=== PATIENT | male | born 1970 | race Caucasian/White ===

== ENCOUNTER 2020-03-15 11:33 | Emergency (ER) | payer BC, SELFPAY ==
[2020-03-15 11:37] VITALS: BP 187/120; PULSE 75; RESP 17; TEMP 37.1; O2SAT 97; O2SAT 98; BMI 34.0
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
[2020-03-15 13:21] VITALS: BP 199/124
[2020-03-15] MEDS: Lisinopril 10 MG Tablet PO (14:38)
[2020-03-15] MEDS: hydroCHLOROthiazide 12.5mg 12.5 MG PO (14:38)
[2020-03-15 14:39] VITALS: BP 169/101; PULSE 78; RESP 16; O2SAT 99
== END 2020-03-15 14:39 | disposition home or self-care (01) ==
LOC: ED 12:19
PROVIDERS: Emergency Provider Emergency Medicine; PCP Nurse Practitioner Family
DX: S16.1XXA Strain of muscle, fascia and tendon at neck level, initial encounter (principal); M54.6 Pain in thoracic spine; I10 Essential (primary) hypertension; J45.909 Unspecified asthma, uncomplicated; V43.52XA Car driver injured in collision with other type car in traffic accident, initial encounter
CPT/HCPCS: 72040; 72072; 99284

== ENCOUNTER → 2020-03-17 15:54 | Outpatient (CLI) | payer BC, SELFPAY ==
[2020-03-15 11:37] VITALS: BMI 34.0
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
== END ==
PROVIDERS: PCP Nurse Practitioner Family; Referring Provider Nurse Practitioner Family; Visit Provider Nurse Practitioner Family
DX: N50.89 Other specified disorders of the male genital organs (principal)
CPT/HCPCS: 76870; 93976

== ENCOUNTER → 2020-07-14 16:18 | Outpatient (CLI) | payer BC, SELFPAY ==
--- NOTE | 2020-07-14 16:21 | US_ITS ---
INDICATION: SPERMATOCELE EXAMINATION: US Scrotum (Contents) TECHNIQUE: Realtime ultrasound of the testicles was performed with grayscale, Color Doppler and spectral Doppler analysis. COMPARISON: 03/17/2020. FINDINGS: RIGHT: TESTIS: Measures 4.1 x 2.9 x 2.1 cm. Normal in size and echotexture, without focal lesion. COLOR DOPPLER: Normal arterial flow present in the testicle with monophasic waveforms. EPIDIDYMIS: Normal in size and echotexture, without focal lesion. [Normal color Doppler flow pattern in the epididymis. HYDROCELE: None. VARICOCELE: None. LEFT: TESTIS: Measures 4 x 2.5 x 2.1 cm. Normal in size and echotexture, without focal lesion. COLOR DOPPLER: Normal arterial flow present in the testicle with monophasic waveforms. EPIDIDYMIS: Enlarged and contains multiple cysts within the epididymal head, largest of which measures 2 x 2.3 x 1.6 cm. This is similar in size and appearance when compared to most recent prior on 03/17/2020. No internal vascularity or solid components. [Normal color Doppler flow pattern in the epididymis. HYDROCELE: None. VARICOCELE: None. US/Testicular with Arterial Flow IMPRESSION: Unchanged appearance of multiple cystic structures in the left epididymal head, largest of which measures 2.3 cm and may be consistent with a cyst or spermatocele. Otherwise, normal bilateral testicles and right epididymis. Electronically Signed: Sidney Esparza MD at 18:27 EDT Tel , Service support ,
== END ==
PROVIDERS: PCP Nurse Practitioner Family
DX: N43.40 Spermatocele of epididymis, unspecified (principal)
CPT/HCPCS: 76870; 93976

== ENCOUNTER 2021-10-19 11:52 | Emergency (ER) | payer BC, SELFPAY ==
[2021-10-19 11:53] VITALS: BP 174/104; PULSE 121; RESP 17; TEMP 37.2; O2SAT 94; BMI 34.4
--- NOTE | 2021-10-19 11:56 | RAD_ITS ---
STUDY: X-RAY CHEST REASON FOR EXAM: Male, 51 years old. SOB TECHNIQUE: Single AP portable view of the chest. COMPARISON: None. FINDINGS: There is hyperinflation of the lungs consistent with chronic obstructive lung disease (COPD). Scattered calcified granulomas. There is no demonstrated pleural abnormality. Normal size heart. Normal mediastinum and imelda. Normal visualized pulmonary arteries. Normal visualized aortic arch and descending thoracic aorta. Normal visualized thoracic spine. Normal visualized ribs, clavicles, and shoulders. There is no demonstrated abnormality of the visualized soft tissue structures of the upper abdomen. RAD/Chest 1 View (Portable) IMPRESSION: Hyperinflation. The lungs are clear. Electronically Signed: Bennie Lopez MD at 13:00 EDT ,
[2021-10-19 12:18] LABS: Absolute Lymphocyte Count 1.37 X10^3/uL (0.83-4.51); Absolute Neutrophil Count 6.2 X10^3/uL (2.0-7.7); Basophil# 0.02 X10^3/uL; Basophil% 0.2 % (0-1); Eosinophil# 0.17 X10^3/uL; Hematocrit 47.7 % (40-54); Hemoglobin 16.1 g/dL (13.0-16.5); Lymphocyte # 1.37 X10^3/ul (0.83-4.51); Lymphocyte % 15.8 % (19-41); Mean Corp Hgb Conc 33.8 g/dL (32-36); Mean Corpuscular Volume 91.7 fL (80-94); Mean Platelet Vol. 9.1 fl (6.2-12.0); Monocyte# 0.87 X10^3/uL; NRBC Flagged by Analyzer 0 % (0-5); Neutrophil % 71.5 % (47-70); Platelet Count 235 K/mm3 (150-450); RBC Distribution Width CV 13.9 % (11.6-14.6); RBC Distribution Width SD 47.1 fl (35.1-43.9); White Blood Count 8.7 K/mm3 (4.4-11.0)
[2021-10-19 12:31] LABS: Anion Gap 7 (5-15); BUN 12 mg/dL (7-18); BUN/Creat Ratio 10.2 RATIO (10-20); Calcium,Total 8.8 mg/dL (8.5-10.1); Chloride 107 mmol/L (98-107); Creatinine, Serum 1.18 mg/dL (0.70-1.30); EST Glomerular Filtration Rate 69 mL/min (>60); Est Glom Filt Rate - Afr Amer 83 mL/min (>60); Estimated Creatinine Clearance 77.99 ml/min; Glucose 109 mg/dL (74-106); Potassium 3.6 mmol/L (3.5-5.1); Sodium Level 139 mmol/L (136-145)
[2021-10-19 12:49] VITALS: O2SAT 93
[2021-10-19 12:52] VITALS: O2SAT 93
--- NOTE | 2021-10-19 14:04 | ED.VIS.DYS ---
HPI History of Present Illness Chief Complaint: Shortness of Breath Informant: patient Onset/Context/Timing Onset: Weeks (1) Context: gradual Timing: Continuous Quality: Positive for - (Tightness) Worsened by: other (Allergies) Relieved by: other (Coughing up sputum) Associated Symptoms cough, rhinorrhea, post nasal drip, sore throat and yellow sputum; Negative for ear pain, fever, subjective, chills, sweats, clear sputum, white sputum or green sputum Chest Pain: Positive for Tightness Narrative Narrative: Patient presents with shortness of breath that has been getting worse over the last week. Patient states it has gradually gotten worse. Patient states that it seems like his allergies tend to set these episodes off. Patient states he has had similar symptoms in the past when he had parainfluenza. Patient states that he is coughing up some yellow sputum. Patient states he has been taking his inhalers and home aerosols with no improvement. Patient states he feels tightness in his chest. Patient admits to some rhinorrhea, postnasal drainage, and sore throat. Patient denies any fevers or chills. [facility] Medical History (Updated 10/19/21 @ 16:[address] Rene Walter, ) Asthma Hypertension Home Medications albuterol sulfate 90 mcg/actuation aerosol inhaler 1 - 2 puff inhalation Q4H PRN PRN Sob &/Or Wheezing 03/15/20 [History Last Taken Unknown] budesonide-formoterol HFA 160 mcg-4.5 mcg/actuation aerosol inhaler 1 puff PO BID 03/15/20 [History Last Taken Unknown] fluticasone propionate 50 mcg/actuation nasal spray,suspension 1 spray NASAL DAILY 03/15/20 [History Last Taken Unknown] lisinopril 10 mg-hydrochlorothiazide 12.5 mg tablet 1 ea PO DAILY #30 tabs 03/15/20 [Rx Last Taken Unknown] loratadine 10 mg capsule 10 mg PO DAILY 03/15/20 [History Last Taken Unknown] losartan 100 mg-hydrochlorothiazide 12.5 mg tablet 1 ea PO DAILY 03/15/20 [History Last Taken Unknown] doxycycline monohydrate 100 mg capsule 100 mg PO BID #20 CAPSULES 10/19/21 [Rx Last Taken Unknown] Allergy/AdvReac Type Severity Reaction Status Date / Time No Known Allergies Allergy Verified 10/19/21 11:52 Surgical History (Updated 10/19/21 @ 14:[address] Rene Walter DO) History of lung biopsy Social History Smoking Status: Never smoker ROS ROS ED Constitutional Constitutional ED: Denies chills or fever(s) Eyes Eyes: Reports blurry vision; Denies change in vision ENT ENT ED: Reports rhinorrhea and sore throat Cardiovascular Cardiovascular: Reports chest pain; Denies palpitations Respiratory/Chest Respiratory/Chest: Reports cough and dyspnea Gastrointestinal Gastrointestinal: Denies nausea or vomiting Genitourinary Genitourinary ED: Denies dysuria or hematuria Musculoskeletal Musculoskeletal: Denies back pain or neck pain Integumentary Denies abscess or rash Neurologic Neurologic: Denies headache(s) or weakness Allergic/Immunologic Allergic/Immunologic ED: Denies mouth swelling or urticaria EXAM Physical Exam Const Vital Signs: 10/19/21 11:53 10/19/21 12:37 10/19/21 12:49 Temperature 99.0 F Temperature Source Temporal Pulse Rate 121 H Respiratory Rate 17 Respiratory Effort Short of Breath Respiratory Depth Normal Respiratory Pattern Tachypnea Blood Pressure 174/104 H Blood Pressure Mean 127 Pulse Ox 94 Oxygen Delivery Method Room Air Room Air Room Air 10/19/21 12:52 Temperature Temperature Source Pulse Rate Respiratory Rate Respiratory Effort Respiratory Depth Respiratory Pattern Blood Pressure Blood Pressure Mean Pulse Ox 93 Oxygen Delivery Method Room Air Positive well nourished, well developed and obese General Appearance ED: well developed and NAD Nutritional Appearance: obese HEENT Reports moist mucous membranes Neck supple and no JVD Resp normal respiratory effort and clear to auscultation bilaterally Cardio regular rate, regular rhythm and no murmurs GI normal to inspection, nondistended, normoactive bowel sounds and non-tender Palpation: soft Extremity normal to inspection General Extremety ED: Negative for edema or tenderness General Extremity: Negative for edema Neuro oriented x3, CN's II-XII intact bilaterally and no sensory deficits noted Sensorium / Orientation: alert Motor Exam: strength 5/5 throughout Psych mental status grossly normal Skin no rashes or lesions noted MDM MDM MDM Narrative Medical decision making narrative: Portable 1 view chest x-ray was obtained. On my interpretation, lung borjas are clear. There is normal cardiac silhouette. Bony thorax is normal. There is no acute process noted. Radiologist also interpreted the x-ray and agrees. EKG was obtained. On my interpretation it shows sinus tachycardia with a rate of 114. There are no acute ST or T wave changes. ND interval, QRS interval, and QTc intervals are normal. [place] is normal. CBC was within normal limits. Basic metabolic profile was within normal limits. Anion gap was normal. COVID-19 rapid antigen was obtained and was negative. CTA of the chest was obtained. There is no evidence of pulmonary embolism. Respiratory panel was ordered and is pending. Patient was advised of his findings. Patient was given a prescription for doxycycline. Patient was instructed to follow-up with his primary care physician in 5 to 7 days. Patient understood and was agreeable with plan. All questions were answered. Lab Data Attestation: I reviewed the patient's lab results. Labs: Laboratory Results - last 24 hr 10/19/21 10/19/21 12:06 12:06 WBC 8.7 RBC 5.20 Hgb 16.1 Hct 47.7 MCV 91.7 MCH 31.0 MCHC 33.8 RDW Std Deviation 47.1 H RDW Coeff of Trisha 13.9 Plt Count 235 MPV 9.1 Immature Gran % (Auto) 0.500 Neut % (Auto) 71.5 H Lymph % (Auto) 15.8 L [place] % (Auto) 10.0 Eos % (Auto) 2.0 Baso % (Auto) 0.2 Absolute Neuts (auto) 6.2 Absolute Lymphs (auto) 1.37 Nucleated RBC % 0 Sodium 139 Potassium 3.6 Chloride 107 Carbon Dioxide 25.0 Anion Gap 7 BUN 12 Creatinine 1.18 Estim Creat Clear Calc 77.99 Est GFR (MDRD) Af Amer 83 Est GFR (MDRD) Non-Af 69 BUN/Creatinine Ratio 10.2 Glucose 109 H Calcium 8.8 Radiography Chest X-Ray - ED: 1 View, Read by ED Physician, Read by Radiologist and No Acute Disease Diagnostic Testing: Clinical Impression(s) from Imaging Studies Chest X-Ray 10/19/21 11:56 IMPRESSION: Hyperinflation. The lungs are clear. Electronically Signed: Bennie Lopez MD at 13:00 EDT , Chest CTA 10/19/21 14:21 IMPRESSION: Prominence of the right hilar lymph nodes as well as the mediastinal lymph nodes more prominent in the subcarinal region. No evidence of pulmonary embolism. Electronically Signed: Bennie Lopez MD at 15:32 EDT , EKG Initial EKG: Interpretation: No Acute Injury Pattern and Sinus Tachycardia (114) Prior EKG tracings: available for review Prior: Unchanged (07/04/2009) Discharge Plan Triage Chief Complaint: Shortness of Breath ED Provider: Rene Walter Dx/Rx/DC Orders Clinical Impression: Acute bronchitis, Asthma Instructions: ED Upper Resp Infec Abx Tx Prescriptions: New doxycycline monohydrate 100 MG capsule 100 mg PO BID Qty: 20 0RF No Action albuterol sulfate 1 PUFF inhaler 1 - 2 puff INHALATION Q4H PRN PRN (Reason: Sob &/Or Wheezing) fluticasone propionate 1 SPRAY spray,suspension 1 spray NASAL DAILY losartan-hydrochlorothiazide 1 EACH tablet 1 ea PO DAILY budesonide-formoterol 1 INHALER inhaler 1 puff PO BID loratadine 10 MG capsule 10 mg PO DAILY lisinopril-hydrochlorothiazide 1 EACH tablet 1 ea PO DAILY Qty: 30 0RF Primary Care Provider: Trevor Greer NP Referrals: Trevor Greer WOOD EXPERIMENTAL MECHANIC, WOOD EXPERIMENTAL MECHANIC-C [Primary Care Provider] - [facility] appointment Disposition Disposition: Home, Self Care
--- NOTE | 2021-10-19 14:21 | CT_ITS ---
STUDY: CTA CHEST REASON FOR EXAM: Male, 51 years old. Dyspnea RADIATION DOSAGE (If Supplied By Facility): CTDIvol = ( 10.83 ) mGy, DLP = ( 463.46 ) mGycm TECHNIQUE: The examination was performed with the intravenous administration of IV 100mL Isovue-370. Post-processing of the angiographic images was performed, with multiplanar reformation and 3D reconstruction. Individualized dose optimization techniques were used for this CT. COMPARISON: None. FINDINGS: Normal enhancement of the main pulmonary artery and right and left pulmonary arteries. Normal enhancement of the bilateral peripheral pulmonary arteries. There is no demonstrated pulmonary embolism. Normal thoracic aorta and visualized great vessels. There is no demonstrated aortic dissection. Normal heart and pericardium. Prominence of the subcarinal lymph nodes extending to the right infrahilar region. Mildly enlarged right hilar lymph nodes. Normal visualized trachea and bronchi. The lungs are well expanded. Mild degree of emphysematous changes. Mild degree of central bronchiectasis. Normal pleura. Normal chest wall structures. Normal osseous structures. There is diffuse fatty infiltration of the liver. CT/CTA Chest W/WO Contrast IMPRESSION: Prominence of the right hilar lymph nodes as well as the mediastinal lymph nodes more prominent in the subcarinal region. No evidence of pulmonary embolism. Electronically Signed: Bennie Lopez MD at 15:32 EDT ,
--- NOTE | 2021-10-19 14:27 | EKG12_ITS ---
Test Reason : SOB Blood Pressure : / mmHG Vent. Rate : 114 BPM Atrial Rate : 114 BPM P-R Int : 134 ms QRS Dur : 078 ms QT Int : 352 ms P-R-T Axes : 058 051 056 degrees QTc Int : 485 ms Sinus tachycardia Otherwise normal ECG Confirmed by PHAN WEBB, CANDIDA ([id number]), writer editor DEJA DUONG ([id number]) on 10/21/2021 8:46:49 AM Referred By: NATHAN Confirmed By:CANDIDA CHISHOLM MD
[2021-10-19] MEDS: Doxycycline 100 MG CAPSULE PO (16:36)
[2021-10-19 16:40] VITALS: BP 152/91; PULSE 100; RESP 20; O2SAT 93
--- NOTE | 2021-10-19 18:48 | ED.RN ---
Lab called to state pt was was positive for parainfluenza 3. reviewed that with Dr. Libertad Win. she notes the doxycycline that was prescribed to pt is not necessary. She suggested pt hold on to doxy and f/u with pcp and if at that time his pcp needs to the doxy to do so at that time. attempted to notify pt of this, unsuccessful, VM full, will try again later.
--- NOTE | 2021-10-19 21:33 | ED.RN ---
attempted to call pt with positive parainfluenza result.VM full.
== END 2021-10-19 16:40 | disposition home or self-care (01) ==
PROVIDERS: Emergency Provider Emergency Medicine; PCP Nurse Practitioner Family; Visit Provider Emergency Medicine
DX: J20.9 Acute bronchitis, unspecified (principal); J45.909 Unspecified asthma, uncomplicated; I10 Essential (primary) hypertension; Z79.899 Other long term (current) drug therapy
CPT/HCPCS: 71045; 71275; 80048; 85025; 87633; 87811; 93005; 94760; 99284; Q9967; A4216